=== PATIENT | female | born 1990 | race Caucasian/White ===

== ENCOUNTER 2017-06-19 19:24 | Emergency (ER) | payer MEDICAID ==
[~2017-06-19] VITALS: Ht 170.2 cm; Wt 65.9 kg
[2017-06-19] MEDS ORDERED: LEXAPRO20 M1 PO (19:36)
[2017-06-19] MEDS ORDERED: NEXPLANON68 MG ID (20:05)
[2017-06-19] MEDS ORDERED: SEPTRA DS 8001 TAB PO (20:22)
[2017-06-19 20:45] VITALS: BP 128/76
== END 2017-06-19 20:45 | disposition home or self-care (01) ==
LOC: ED 19:24
DX: N30.90 Cystitis, unspecified without hematuria (principal)

== ENCOUNTER 2019-09-04 07:59 | Emergency (ER) | payer BC ==
[~2019-09-04] VITALS: Ht 170.2 cm; Wt 92.3 kg
[~2019-09-04 07:59] MED LIST: LEXAPRO20 M1 PO; NEXPLANON68 MG ID; SEPTRA DS 8001 TAB PO
[2019-09-04] MEDS ORDERED: ALPRAZOLAM0.25 MG PO (08:10)
[2019-09-04] MEDS ORDERED: FLONASE ALLERG9.9 ML NS (08:20)
[2019-09-04 09:32] LABS: HEMATOCRIT 41.2 % (37.0-47.0); HEMOGLOBIN 13.2 g/dL (12.5-16.0); MEAN CELL VOLUME 78 fl (78-100); MEAN CORPUSCULAR HEMOGLOBIN 25 pg (27-31); MEAN CORPUSCULAR HGB CONC 32 g/dL (33-37); MEAN PLATELET VOLUME 10.7 fl (7.4-10.4); PLATELET COUNT 330 K/mm3 (130-400); RED BLOOD COUNT 5.29 M/mm3 (4.10-5.30)
[2019-09-04 09:51] LABS: URINE APPEARANCE HAZY; URINE BILIRUBIN NEGATIVE (NEGATIVE); URINE BLOOD 50 ery/uL (NEGATIVE); URINE COLOR YELLOW; URINE GLUCOSE NEGATIVE (NEGATIVE); URINE KETONE 1+ (NEGATIVE); URINE LEUKOCYTE ESTERASE TRACE (NEGATIVE); URINE NITRATE NEGATIVE (NEGATIVE); URINE PROTEIN(semi-quant) TRACE mg/dL (NEGATIVE); URINE UROBILINOGEN NORMAL (NORMAL)
[2019-09-04 09:52] LABS: URINE MUCUS PRESENT (NOT PRESENT)
[2019-09-04 09:52] LABS: LYMPHOCYTE 3 % (20-51); MONOCYTE 2 % (3-10); NEUTROPHILS 95 % (42-75)
[2019-09-04 12:25] LABS: URINE APPEARANCE CLOUDY; URINE BILIRUBIN NEGATIVE (NEGATIVE); URINE BLOOD TRACE (NEGATIVE); URINE COLOR YELLOW; URINE GLUCOSE NEGATIVE (NEGATIVE); URINE KETONE 1+ (NEGATIVE); URINE LEUKOCYTE ESTERASE TRACE (NEGATIVE); URINE NITRATE NEGATIVE (NEGATIVE); URINE PROTEIN(semi-quant) TRACE mg/dL (NEGATIVE); URINE UROBILINOGEN NORMAL (NORMAL)
[2019-09-04 12:26] LABS: URINE MUCUS PRESENT (NOT PRESENT)
[2019-09-04] MEDS ORDERED: ZOFRAN ODT4 MG PO (12:54)
[2019-09-04] MEDS ORDERED: SEPTRA DS 8001 TAB PO (12:54)
[2019-09-04 13:50] VITALS: BP 101/68
== END 2019-09-04 14:05 | disposition home or self-care (01) ==
LOC: ED 07:59
PROVIDERS: Family Medicine
DX: R82.81 Pyuria (principal); R11.2 Nausea with vomiting, unspecified; Z90.89 Acquired absence of other organs
CPT/HCPCS: A4216; J0696; J1885; J7030

== ENCOUNTER 2019-10-27 10:58 | Emergency (ER) | payer BC ==
[~2019-10-27 10:58] MED LIST changes: +ALPRAZOLAM0.25 MG PO; +FLONASE ALLERG9.9 ML NS; +ZOFRAN ODT4 MG PO
[2019-10-27 11:55] LABS: BASO # 0.1 (0.02-0.10); EOS # 0.1 (0.04-0.40); EOS % 0.7 % (1.0-5.0); HEMATOCRIT 46.2 % (37.0-47.0); HEMOGLOBIN 14.8 g/dL (12.5-16.0); MEAN CELL VOLUME 78 fl (78-100); MEAN CORPUSCULAR HEMOGLOBIN 25 pg (27-31); MEAN CORPUSCULAR HGB CONC 32 g/dL (33-37); MEAN PLATELET VOLUME 10.3 fl (7.4-10.4); MONO # 1.4 (0.20-0.80); PLATELET COUNT 414 K/mm3 (130-400); RED CELL DISTRIBUTION WIDTH 15.8 % (11.5-14.5); WHITE BLOOD COUNT 18.7 K/mm3 (4.8-10.8)
[2019-10-27 11:56] LABS: ALBUMIN 4.4 g/dL (3.5-5.0); POTASSIUM 4.2 mmol/L (3.5-5.1); SODIUM 140 mmol/L (136-145)
[2019-10-27 11:57] LABS: CALCIUM 9.3 mg/dL (8.3-10.5)
[2019-10-27 11:58] LABS: GLUCOSE 99 mg/dL (65-105); TOTAL PROTEIN 7.6 g/dL (6.4-8.3)
[2019-10-27 11:59] LABS: CARBON DIOXIDE 27 mmol/L (22-29)
[2019-10-27 12:00] LABS: TOTAL BILIRUBIN 0.3 mg/dL (0.2-1.2)
[2019-10-27 12:03] LABS: AST-SGOT 15 U/L (5-34); LYMPH# 4.9 (1.50-4.00); NEU # 12.2 (1.40-6.50)
[2019-10-27 12:04] LABS: ALCOHOL IN-HOUSE < 10 mg/dL (<10)
[2019-10-27 12:05] LABS: ALT/SGPT 28 U/L (0-55)
[2019-10-27 12:11] LABS: ACETAMINOPHEN < 1 ug/mL
[2019-10-27 12:16] LABS: URINE APPEARANCE HAZY; URINE COLOR LT YELLOW
[2019-10-27 12:17] LABS: URINE BILIRUBIN NEGATIVE (NEGATIVE); URINE BLOOD TRACE (NEGATIVE); URINE GLUCOSE NEGATIVE (NEGATIVE); URINE KETONE NEGATIVE (NEGATIVE); URINE LEUKOCYTE ESTERASE 1+ (NEGATIVE); URINE NITRATE NEGATIVE (NEGATIVE); URINE PROTEIN(semi-quant) TRACE mg/dL (NEGATIVE); URINE UROBILINOGEN NORMAL (NORMAL); URINE WBC 16-30 /hpf (0-3)
[2019-10-27] MEDS ORDERED: AUGMENTIN 875-1 EAC1 PO (13:31)
[2019-10-27 15:46] VITALS: BP 134/84
== END 2019-10-27 15:52 | disposition home or self-care (01) ==
LOC: ED 10:58
PROVIDERS: Nurse Practitioner Family
DX: R45.851 Suicidal ideations (principal); F32.9 Major depressive disorder, single episode, unspecified; N30.91 Cystitis, unspecified with hematuria; J32.9 Chronic sinusitis, unspecified; F41.9 Anxiety disorder, unspecified; Z88.8 Allergy status to other drugs, medicaments and biological substances